=== PATIENT | female | born 1945 | race Caucasian/White ===

== ENCOUNTER 2016-08-13 03:48 | Inpatient (IN) | payer MEDICARE ==
[2016-08-13] MEDS ORDERED: predniSONE 20 MG TAB PO STA (04:23)
[2016-08-13] MEDS ORDERED: IPRATROPIUM-ALBUTEROL 3 ML NEB INHALATION STA ×2 (04:23→11:15)
--- NOTE | 2016-08-13 05:29 | XR ---
EXAMINATION TYPE: XR chest 1V portable DATE OF EXAM: 08/13/2016 4:55 AM COMPARISON: NONE HISTORY: History of COPD, patient with dyspnea TECHNIQUE: Single frontal view of the chest is obtained. Portable AP upright 08/13/2016, 4:52 AM hours FINDINGS: There is mild pulmonary vascular congestion. Chronic interstitial lung changes are suggested bilatera lly. No definite focal pneumonia is noted. There is no pneumothorax or pleural effusion. There is mild car diomegaly atherosclerotic calcification in the aortic arch and left-sided pacemaker are noted. The os seous structures are intact. IMPRESSION: 1. Mild pulmonary vascular congestion and chronic lung changes. 2. No focal pneumonia. 3. Cardiomegaly.
[2016-08-13 05:34] LABS: Basophils # (A) 0.1 k/uL (0-0.2); Basophils % (A) 0 %; CH 26.9; CHCM 30.5; Eosinophils # (A) 0.2 k/uL (0-0.7); Eosinophils % (A) 2 %; HCT 38.6 % (34.0-46.0); HDW 3.05; HGB 11.5 gm/dL (11.4-16.0); Hypochromasia Marked; Luc # (Auto) 0.11; Luc % (Auto) 1; Lymphocytes # (A) 0.5 k/uL (1.0-4.8); Lymphocytes % (A) 5 %; MCH 26.3 pg (25.0-35.0); MCHC 29.7 g/dL (31.0-37.0); MCV 88.6 fL (80.0-100.0); Mean Platelet Volume 9.2; Monocytes # (A) 0.5 k/uL (0-1.0); Monocytes % (A) 4 %; Neutrophils # (A) 9.6 k/uL (1.3-7.7); Neutrophils % (A) 88 %; RBC 4.36 m/uL (3.80-5.40); RDW 15.9 % (11.5-15.5); WBC (Perox) 11.41
[2016-08-13] MEDS ORDERED: HYDROcodone/APAP 5-325MG 1 EACH TAB PO STA (05:49)
[2016-08-13 05:52] LABS: Calcium 8.9 mg/dL (8.4-10.2); Potassium 4.9 mmol/L (3.5-5.1); Total Bilirubin 0.7 mg/dL (0.2-1.3); Total Protein 7.1 g/dL (6.3-8.2)
[2016-08-13 05:53] LABS: Creatine Kinase 86 U/L (30-135)
[2016-08-13 05:54] LABS: INR 1.1 (<1.1); Partial Thromboplastin Time 29.6 sec (22.0-30.0); Prothrombin Time 11.1 sec (9.0-12.0)
[2016-08-13 06:06] LABS: Creatine Kinase MB 1.7 ng/mL (0.0-2.4); Troponin I <0.012 ng/mL (0.000-0.034)
[2016-08-13] MEDS ORDERED: FUROSEMIDE 10 MG/ML 4 ML VIAL IV STA (06:08)
--- NOTE | 2016-08-13 06:08 | ED ---
SOB HPI - General Chief Complaint: Shortness of Breath Stated Complaint: SOB Time Seen by Provider: 08/13/16 04:02 Source: patient, family Mode of arrival: wheelchair Limitations: no limitations - History of Present Illness Initial Comments: This patient is a 8-year-old woman who presents to be evaluated for shortness of breath. The patient does have history of COPD, and states that her breathing is been getting worse for approximately a day and a half. Tonight she was not able to lie back to sleep. She does not tolerate lying flat. In addition she is now having a cough that is productive of some occasional yellow sputum. Patient denies fever or chills. She is not having chest pain. She has not noted any change in urination. She does complain that her feet seem more swollen than is usual. She has not had calf pain or swelling. Patient has not noticed a change in stool, no blood or dark tarry stool MD Complaint: shortness of breath, cough Onset/Timin -: days(s) Severity: moderate Consistency: constant Improves With: oxygen Worsens With: lying flat Known History Of: COPD Associated Symptoms: cough, sputum production - Related Data Home Medications Medication Instructions Recorded Confirmed Albuterol Nebulized [Ventolin 2.5 mg INHALATION Q6H 08/13/16 08/13/16 Nebulized] Allopurinol [Zyloprim] 300 mg PO DAILY 08/13/16 08/13/16 Apixaban [Eliquis] 2.5 mg PO BID 08/13/16 08/13/16 Aspirin 325 mg PO DAILY 08/13/16 08/13/16 Calcipotriene/Betamethasone 60 gm TP BID 08/13/16 08/13/16 [Calcipotriene-Betameth Dp Oint] Clotrimazole/Betameth Cream 1 applic TOPICAL BID 08/13/16 08/13/16 [Lotrisone] Desonide 15 gm TP DAILY 08/13/16 08/13/16 Digoxin [Lanoxin] 125 mcg PO DAILY 08/13/16 08/13/16 Furosemide [Lasix] 40 mg PO DAILY PRN 08/13/16 08/13/16 Hydrocortisone Cream 1 applic TOPICAL QID 08/13/16 08/13/16 [Hydrocortisone 1% Cream] Ipratropium Nebulized [Atrovent 0.5 mg INHALATION Q6HR 08/13/16 08/13/16 Nebulized] Ketoconazole 2% Cream [Nizoral] 1 applic TOPICAL BID 08/13/16 08/13/16 Levothyroxine Sodium [Levoxyl] 150 mcg PO DAILY 08/13/16 08/13/16 Metoprolol Succinate [Toprol XL] 50 mg PO DAILY 08/13/16 08/13/16 Nitroglycerin Sl Tabs [Nitrostat] 0.4 mg SUBLINGUAL Q5M PRN 08/13/16 08/13/16 Nystatin 1 applic TOPICAL BID 08/13/16 08/13/16 Omeprazole 40 mg PO DAILY 08/13/16 08/13/16 Triamcinolone 0.1% Cream [Kenalog] 1 applicatio TOPICAL BID 08/13/16 08/13/16 Allergies Allergy/AdvReac Type Severity Reaction Status Date / Time atorvastatin [From Lipitor] Allergy Rash/Hives Verified 08/13/16 04:01 budesonide Allergy Rash/Hives Verified 08/13/16 04:01 cheese Allergy Rash/Hives Verified 08/13/16 04:01 chocolate flavor Allergy Rash/Hives Verified 08/13/16 04:01 egg Allergy Rash/Hives Verified 08/13/16 04:01 Fish Containing Products Allergy Rash/Hives Verified 08/13/16 04:01 fluorescein Allergy Rash/Hives Verified 08/13/16 04:01 ibuprofen [From Motrin] Allergy Rash/Hives Verified 08/13/16 04:01 iodine Allergy Rash/Hives Verified 08/13/16 04:01 Milk Containing Products Allergy Rash/Hives Verified 08/13/16 04:01 peanut oil Allergy Rash/Hives Verified 08/13/16 04:01 Penicillins Allergy Rash/Hives Verified 08/13/16 04:01 wright Allergy Rash/Hives Uncoded 08/13/16 04:01 Review of Systems ROS Statement: Those systems with pertinent positive or pertinent negative responses have been documented in the HPI. ROS Other: All systems not noted in ROS Statement are negative. Constitutional: Denies: fever, chills Respiratory: Reports: cough, dyspnea. Denies: wheezes, hemoptysis Cardiovascular: Reports: orthopnea, edema. Denies: chest pain, palpitations, syncope Gastrointestinal: Denies: abdominal pain, nausea, vomiting, melena, hematochezia Genitourinary: Denies: dysuria, hematuria Musculoskeletal: Denies: back pain Skin: Denies: rash Neurological: Denies: weakness, numbness Past Medical History Past Medical History: Asthma, COPD, Hypertension, Sleep Apnea/CPAP/BIPAP, Thyroid Disorder Additional Past Medical History / Comment(s): claustrophobic History of Any Multi-Drug Resistant Organisms: None Reported Past Surgical History: Pacemaker, Tonsillectomy Additional Past Surgical History / Comment(s): thyroidectomy Past Psychological History: No Psychological Hx Reported Smoking Status: Former smoker Past Alcohol Use History: None Reported Past Drug Use History: None Reported General Exam Limitations: no limitations General appearance: alert, in distress ( in mild respiratory distress with some tachypnea.), obese Head exam: Present: atraumatic, normocephalic Eye exam: Present: normal appearance. Absent: scleral icterus, conjunctival injection Respiratory exam: Present: respiratory distress (Mild tachypnea), wheezes (Mild wheeze throughout), rales (To the bilateral lower lung seth). Absent: rhonchi , stridor, chest wall tenderness, accessory muscle use, decreased breath sounds , prolonged expiratory Cardiovascular Exam: Present: regular rate, normal rhythm, normal heart sounds. Absent: systolic murmur, diastolic murmur, rubs, gallop GI/Abdominal exam: Present: soft. Absent: distended, tenderness, guarding, rebound, mass, pulsatile mass Extremities exam: Present: normal inspection, normal capillary refill, pedal edema. Absent: calf tenderness Back exam: Present: normal inspection. Absent: CVA tenderness (R), CVA tenderness (L) Neurological exam: Present: alert Skin exam: Present: warm, dry, intact, normal color. Absent: rash Course Vital Signs 08/13/16 08/13/16 08/13/16 03:51 05:11 05:21 Temperature 97.2 F L Pulse Rate 85 88 89 Respiratory 22 Rate Blood Pressure 135/92 O2 Sat by Pulse 81 L Oximetry 08/13/16 05:27 Temperature Pulse Rate 89 Respiratory 26 H Rate Blood Pressure 177/86 O2 Sat by Pulse 95 Oximetry Medical Decision Making - Lab Data Result diagrams: 08/13/16 05:16 08/13/16 05:16 Lab Results 08/13/16 08/13/16 08/13/16 Range/Units 05:16 05:16 05:16 WBC 11.0 H (3.8-10.6) k/uL RBC 4.36 (3.80-5.40) m/uL Hgb 11.5 (11.4-16.0) gm/dL Hct 38.6 (34.0-46.0) % MCV 88.6 (80.0-100.0) fL MCH 26.3 (25.0-35.0) pg MCHC 29.7 L (31.0-37.0) g/dL RDW 15.9 H (11.5-15.5) % Plt Count 165 (150-450) k/uL Neutrophils % 88 % Lymphocytes % 5 % Monocytes % 4 % Eosinophils % 2 % Basophils % 0 % Neutrophils # 9.6 H (1.3-7.7) k/uL Lymphocytes # 0.5 L (1.0-4.8) k/uL Monocytes # 0.5 (0-1.0) k/uL Eosinophils # 0.2 (0-0.7) k/uL Basophils # 0.1 (0-0.2) k/uL Hypochromasia Marked PT (9.0-12.0) sec INR (<1.1) APTT (22.0-30.0) sec D-Dimer (<0.60) mg/L FEU Sodium 141 (137-145) mmol/L Potassium 4.9 (3.5-5.1) mmol/L Chloride 95 L (98-107) mmol/L Carbon Dioxide 36 H (22-30) mmol/L Anion Gap 10 mmol/L BUN 21 H (7-17) mg/dL Creatinine 1.10 H (0.52-1.04) mg/dL Est GFR (MDRD) Af Amer 60 (>60 ml/min/1.73 sqM) Est GFR (MDRD) Non-Af 49 (>60 ml/min/1.73 sqM) Glucose 101 H (74-99) mg/dL Calcium 8.9 (8.4-10.2) mg/dL Total Bilirubin 0.7 (0.2-1.3) mg/dL AST 26 (14-36) U/L ALT 29 (9-52) U/L Alkaline Phosphatase 89 (38-126) U/L Total Creatine Kinase 86 (30-135) U/L CK-MB (CK-2) 1.7 (0.0-2.4) ng/mL CK-MB (CK-2) Rel Index 2.0 Troponin I <0.012 (0.000-0.034) ng/mL NT-Pro-B Natriuret Pep pg/mL Total Protein 7.1 (6.3-8.2) g/dL Albumin 4.0 (3.5-5.0) g/dL 08/13/16 08/13/16 Range/Units 05:16 05:16 WBC (3.8-10.6) k/uL RBC (3.80-5.40) m/uL Hgb (11.4-16.0) gm/dL Hct (34.0-46.0) % MCV (80.0-100.0) fL MCH (25.0-35.0) pg MCHC (31.0-37.0) g/dL RDW (11.5-15.5) % Plt Count (150-450) k/uL Neutrophils % % Lymphocytes % % Monocytes % % Eosinophils % % Basophils % % Neutrophils # (1.3-7.7) k/uL Lymphocytes # (1.0-4.8) k/uL Monocytes # (0-1.0) k/uL Eosinophils # (0-0.7) k/uL Basophils # (0-0.2) k/uL Hypochromasia PT 11.1 (9.0-12.0) sec INR 1.1 (<1.1) APTT 29.6 (22.0-30.0) sec D-Dimer 0.88 H (<0.60) mg/L FEU Sodium (137-145) mmol/L Potassium (3.5-5.1) mmol/L Chloride (98-107) mmol/L Carbon Dioxide (22-30) mmol/L Anion Gap mmol/L BUN (7-17) mg/dL Creatinine (0.52-1.04) mg/dL Est GFR (MDRD) Af Amer (>60 ml/min/1.73 sqM) Est GFR (MDRD) Non-Af (>60 ml/min/1.73 sqM) Glucose (74-99) mg/dL Calcium (8.4-10.2) mg/dL Total Bilirubin (0.2-1.3) mg/dL AST (14-36) U/L ALT (9-52) U/L Alkaline Phosphatase (38-126) U/L Total Creatine Kinase (30-135) U/L CK-MB (CK-2) (0.0-2.4) ng/mL CK-MB (CK-2) Rel Index Troponin I (0.000-0.034) ng/mL NT-Pro-B Natriuret Pep 5280 pg/mL Total Protein (6.3-8.2) g/dL Albumin (3.5-5.0) g/dL - EKG Data -: EKG Interpreted by Ne EKG shows normal: axis (Normal), intervals (Normal), QRS complexes (Low voltage QRS complexes. Incomplete right bundle branch block pattern) Interpretation: other (The patient's underlying rhythm appears to be atrial fibrillation with a rate of approximately 80 bpm. inferior T inversions suggestive of possible ischemia) Disposition Clinical Impression: Congestive heart failure Disposition: ADMITTED IP TO THIS [facility] Condition: Fair Referrals: Lilia Love DO [Primary Care Provider] - 1-2 days
[2016-08-13] MEDS ORDERED: TEMAZEPAM 15 MG CAP PO PRN (16:08)
[2016-08-13] MEDS ORDERED: HYDROmorphone 1 MG/ML 1 ML SYRINGE IVP PRN (16:08)
[2016-08-13] MEDS ORDERED: NITROGLYCERIN SL TABS 0.4 MG TAB SUBLINGUAL PRN (16:12)
[2016-08-13] MEDS: HYDROCORTISONE 1% CREAM 30 GM TUBE TOPICAL SCH ×2 (18:03→20:39)
[2016-08-13] MEDS: LEVOTHYROXINE 75 MCG TAB PO SCH (18:04)
[2016-08-13] MEDS: LEVALBUTEROL NEB (CONC) 1.25 MG/0.5 ML AMP INHALATION SCH ×2 (19:24→19:48)
[2016-08-13] MEDS: IPRATROPIUM 0.5 MG/2.5 ML NEBU INHALATION SCH ×2 (19:24→19:47)
[2016-08-13] MEDS: FORMOTEROL FUMARATE 20 MCG/2 ML NEBU INHALATION SCH (19:48)
[2016-08-13] MEDS: NYSTATIN 100,000 UNIT/GM OINT 30 GM TUBE TOPICAL SCH (20:32)
--- NOTE | 2016-08-13 20:37 | HP ---
DATE OF ADMISSION: CHIEF COMPLAINT: Shortness of breath. HISTORY OF PRESENT ILLNESS: this 71-year-old woman with a past medical history of atrial fibrillation, history of asthma, COPD, GERD, hypertension. history of renal disease, history of sleep apnea, history of chronic hypoxic respiratory failure, history of pacemaker, being followed by Dr. Lilia Love in the outpatient setting, was complaining of shortness of breath over the past several days. According to the caregiver, who is the grandson, the patient has been having shortness of breath for the last several weeks. Because of increasing difficulties, the patient came to [facility] and was admitted for further evaluation and treatment. The patient also had COPD as well as psoriatic lesions. The patient also has seen the grain unloader as well as the release engineer. There is no history of any fever, rigors or chills. No history of headache, loss of consciousness, seizures. The patient is unable to lie down flat, according to the family. The patient is unable to get good sleep as well. Patient has rash under the breast. PAST MEDICAL HISTORY: 1. History of atrial fibrillation. 2. Asthma. 3. COPD. 4. GERD. 5. Hypertension. 6. History of renal disease. 7. History of respiratory disorder. 8. Sleep apnea. 9. History of pacemaker. HOME MEDICATIONS: 1. Kenalog 1 application b.i.d. 2. Omeprazole 40 mg p.o. daily. 3. Nystatin 1 application b.i.d. 4. Nitrostat 0.4 sublingually p.r.n. 5. Toprol XL 50 mg p.o. daily. 6. Levoxyl 150 mcg p.o. daily. 7. Nizoral 1 application b.i.d. 8. Atrovent 0.5 q.6. 9. Hydrocortisone 1 application q.i.d. 10. Lasix 40 mg daily p.r.n. 11. Lanoxin 125 mcg p.o. daily. 12. Desonide 15 grams daily. 13. Lotrisone 1 application b.i.d. 14. Calcipotriene 1 application b.i.d. 15. Aspirin 325 mg daily. 16. Eliquis 2.5 mg b.i.d. 17. Zyloprim 300 mg daily. 18. Ventolin 2.5 q.6. ALLERGIES: 1. ATORVASTATIN. 2. BUDESONIDE. 3. CHEESE. 4. CHOCOLATE FLAVOR. 5. EGGS. 6. FISH-CONTAINING PRODUCTS. 7. FLUORESCEIN. 8. IBUPROFEN. 9. IODINE. 10. MILK-CONTAINING PRODUCTS. 11. PEANUT OIL. 12. PENICILLIN. 13. REAGAN. FAMILY HISTORY: History of COPD in the family. SOCIAL HISTORY: Previous history of smoking. No current smoking or alcohol intake. REVIEW OF SYSTEMS: ENT: No diminished hearing. No diminished vision. CARDIOVASCULAR: No angina, palpitations. RESPIRATORY: As mentioned earlier. GI: No nausea, vomiting. : No dysuria, retention. NERVOUS SYSTEM: No numbness or weakness. ALLERGY/IMMUNOLOGY: No asthma, hayfever. MUSCULOSKELETAL: As mentioned earlier. HEMATOLOGY/ONCOLOGY: As mentioned earlier. ENDOCRINE: As mentioned earlier. CONSTITUTIONAL: As mentioned earlier. DERMATOLOGY: As mentioned earlier. RHEUMATOLOGY: Negative. PSYCHIATRY: As mentioned earlier. PHYSICAL EXAMINATION: Patient is alert and oriented x3. Pulse 84, blood pressure 156/78, respiration 18, temperature 97.8. Pulse ox 94% on 3 L. HEENT: Conjunctivae normal. Oral mucosa moist. NECK: Obese. CARDIOVASCULAR SYSTEM: S1, S2 muffled. Occasional ( ) RESPIRATORY SYSTEM: Breath sounds diminished at the bases. A few scattered rhonchi. ABDOMEN: Soft, obese, nontender. No mass palpable. LEGS: Bilateral minimal leg edema. NERVOUS SYSTEM: Higher functions as mentioned earlier. Moves all 4 limbs. No focal motor or sensory deficit. LYMPHATICS: No lymph node palpable in neck, axillae or groin. SKIN: Diffuse rash, psoriasis present. Lab investigations at this time show WBC 11, hemoglobin 11.5. PT is 11.1. INR is 1.1. D-dimer is 0.86. CO2 is 36. Glucose 101. NT-proBNP is 5280. ASSESSMENT: 1. Shortness of breath, possibly multifactorial; congestive heart failure, acute exacerbation. 2. Chronic obstructive pulmonary disease, acute exacerbation, with acute purulent tracheobronchitis. 3. Acute psoriasis. 4. Increased white count. 5. Super morbid obesity with a body mass index of 47.1. 6. Increased creatinine with possible mild acute renal failure. 7. History of atrial fibrillation. 8. History of asthma, chronic obstructive pulmonary disease. 9. History of gastroesophageal reflux disease. 10. Hypertension. 11. History of chronic kidney disease, stage III. 12. History of sleep apnea. 13. Obstructive sleep apnea. 14. History of chronic hypoxic respiratory failure, on home oxygen 2 liters. 15. Chronic bilateral leg edema. 16. Pacemaker. 17. Remote history of nicotine dependence. 18. FULL CODE. RECOMMENDATIONS AND DISCUSSION: In this 71-year-old woman who presented with multiple complex medical issues, we will monitor the patient closely, continue the current medications, continue symptomatic treatment. Will optimize the bronchodilator treatment, Lasix. Otherwise, IV steroids. See orders for further details. Guarded prognosis because of multiple complex medical issues. Further recommendations to follow. A copy of this dictation is being forwarded to Dr. Lilia Love. Discussed with the family. Home medications will be continued.
[2016-08-13] MEDS: APIXABAN 2.5 MG TABLET PO SCH (20:38)
[2016-08-13] MEDS: CLOTRIMAZOLE/BETAMETH 1-0.05% CREAM 45 GM TUBE TOPICAL SCH (20:38)
[2016-08-13] MEDS: TRIAMCINOLONE 0.1% CREAM 80 GM TUBE TOPICAL SCH (20:38)
[2016-08-13] MEDS ORDERED: [UNRECOGNIZED DRUG - OTHER] TOPICAL SCH (21:00)
[2016-08-13] MEDS ORDERED: CLOTRIMAZOLE/BETAMETH 1-0.05% CREAM 45 GM TUBE TOPICAL SCH (21:00)
[2016-08-13] MEDS ORDERED: CALCIPOTRIENE TOPICAL SCH (21:00)
[2016-08-13] MEDS ORDERED: BETAMETHASONE TOPICAL SCH (21:00)
[2016-08-13] MEDS ORDERED: NON-FORMULARY DRUG (Ketoconazole 2% Cream 1 APPLIC) TOPICAL SCH (21:00)
[2016-08-14] MEDS: LEVOTHYROXINE 75 MCG TAB PO SCH (06:00)
[2016-08-14] MEDS: HYDROcodone/APAP 5-325MG 1 EACH TAB PO PRN (06:01)
[2016-08-14] MEDS: PANTOPRAZOLE 40 MG TABLET PO SCH (06:01)
[2016-08-14 06:05] LABS: Basophils % (A) 0 %; CH 26.3; Eosinophils # (A) 0.1 k/uL (0-0.7); Eosinophils % (A) 1 %; HCT 39.4 % (34.0-46.0); HDW 2.99; HGB 11.7 gm/dL (11.4-16.0); Hypochromasia Marked; Luc # (Auto) 0.15; Luc % (Auto) 2; Lymphocytes # (A) 0.8 k/uL (1.0-4.8); Lymphocytes % (A) 8 %; MCH 26.9 pg (25.0-35.0); MCHC 29.6 g/dL (31.0-37.0); MCV 90.9 fL (80.0-100.0); Mean Platelet Volume 8.8; Monocytes # (A) 0.4 k/uL (0-1.0); Monocytes % (A) 4 %; Neutrophils # (A) 8.8 k/uL (1.3-7.7); Neutrophils % (A) 85 %; RBC 4.33 m/uL (3.80-5.40); RDW 15.4 % (11.5-15.5); WBC 10.3 k/uL (3.8-10.6); WBC (Perox) 10.89
[2016-08-14 06:18] LABS: Calcium 9.1 mg/dL (8.4-10.2)
[2016-08-14 06:19] LABS: Potassium 5.5 mmol/L (3.5-5.1)
[2016-08-14] MEDS: FORMOTEROL FUMARATE 20 MCG/2 ML NEBU INHALATION SCH ×2 (06:25→20:39)
[2016-08-14] MEDS: LEVALBUTEROL NEB (CONC) 1.25 MG/0.5 ML AMP INHALATION SCH ×3 (06:25→16:23)
[2016-08-14] MEDS: IPRATROPIUM 0.5 MG/2.5 ML NEBU INHALATION SCH ×3 (06:25→16:23)
[2016-08-14] MEDS ORDERED: LEVOTHYROXINE 75 MCG TAB PO SCH (06:30)
[2016-08-14] MEDS: DIGOXIN 125 MCG TAB PO SCH (08:09)
[2016-08-14] MEDS: ALLOPURINOL 300 MG TAB PO SCH (08:09)
[2016-08-14] MEDS: APIXABAN 2.5 MG TABLET PO SCH ×2 (08:09→21:24)
[2016-08-14] MEDS: METOPROLOL SUCCINATE (ER) 50 MG TAB.ER.24H PO SCH (08:09)
[2016-08-14] MEDS: NYSTATIN 100,000 UNIT/GM OINT 30 GM TUBE TOPICAL SCH ×2 (08:10→22:53)
[2016-08-14] MEDS: CLOTRIMAZOLE/BETAMETH 1-0.05% CREAM 45 GM TUBE TOPICAL SCH ×2 (08:10→22:53)
[2016-08-14] MEDS: TRIAMCINOLONE 0.1% CREAM 80 GM TUBE TOPICAL SCH ×2 (08:10→22:53)
[2016-08-14] MEDS: HYDROCORTISONE 1% CREAM 30 GM TUBE TOPICAL SCH ×4 (08:10→22:54)
[2016-08-14 08:24] LABS: Appearance,Urine Cloudy (Clear); Bacteria,Urine Rare /hpf; Bilirubin,Urine Negative (Negative); Glucose,Urine (UA) Negative (Negative); Ketones,Urine Negative (Negative); Leukocyte Esterase,Urine Negative (Negative); Mucus,Urine Rare /hpf; Nitrite,Urine Negative (Negative); PH, Urine 5.5 (5.0-8.0); Particle Count 5015; Protein,Urine Trace (Negative); Specific Gravity,Urine 1.015 (1.001-1.035); Squamous Epithelial Cell,Urine 2 /hpf (0-4); UA Billing (MACRO vs. MICRO) MICRO; Urobilinogen,Urine <2.0 mg/dL (<2.0); WBC,Urine 2 /hpf (0-5)
[2016-08-14] MEDS ORDERED: NON-FORMULARY DRUG (Omeprazole [Omeprazole] 40 MG) PO SCH (09:00)
[2016-08-14] MEDS ORDERED: ASPIRIN 325 MG TAB PO SCH (09:00)
[2016-08-14] MEDS ORDERED: DESONIDE 15 GM TOPICAL SCH (09:00)
--- NOTE | 2016-08-14 09:20 | P.CRDCN ---
History of Present Illness Consult date: 08/14/16 Requesting physician: Bradley Cardenas Consult reason: congestive heart failure Chief complaint: Shortness of breath History of present illness: This is a 71-year-old female with known history of chronic persistent atrial fibrillation, COPD, asthma, GERD, hypertension, renal disease, sleep apnea, prior pacemaker implantation, psoriasis, who is from the [place] area, has lived in [place] for several years and recently moved back to this area. She states that she has seen a transition mgr rn locally, however there is no records for her in the office. Patient was admitted to the hospital with symptoms of 3-4 day duration of progressively worsening shortness of breath. Patient also states she's been coughing a significant amount, clear to yellow sputum. Denies fever or chills. She does have evidence of bilateral peripheral edema, greater in the left lower extremity, she states that this is normal for her, maybe a little bit more than usual. She has significant amount of psoriasis lesions on her entire body. Chest x-ray on admission reveals mild pulmonary vascular congestion and chronic lung changes with no evidence. EKG on arrival here showed atrial fibrillation with a controlled ventricular response, inferior ST-T wave changes. Laboratory data reviewed, WBC 11.0, hemoglobin 11.5, d-dimer 0.8, potassium 5.5 this morning, BUN 29, creatinine 1.2. Troponin 0.012. BNP level 5280. Patient was given a one-time dose of IV Lasix in the emergency room. She is on Eliquis for anticoagulation, was initiated on a full aspirin here as well. At the time of my examination this morning, patient continues to have a productive cough, states her breathing is mildly improved. Past Medical History Past Medical History: Atrial Fibrillation, Asthma, COPD, GERD/Reflux, Hypertension, Renal Disease, Respiratory Disorder, Skin Disorder, Sleep Apnea/ CPAP/BIPAP, Thyroid Disorder Additional Past Medical History / Comment(s): BRANDEN with CPAP, home O2 at 2L/NC, CKD stage III, chronic lower leg edema bilatrally with L leg worse, gout bilateral feet, thyroidectomy due to benign nodules, psoriasis, claustrophobic History of Any Multi-Drug Resistant Organisms: None Reported Past Surgical History: Pacemaker, Tonsillectomy Additional Past Surgical History / Comment(s): 08/2014 Pacemaker in [place] (pt cannot recall name of facility), thyroidectomy, colonoscopy Past Anesthesia/Blood Transfusion Reactions: No Reported Reaction Additional Past Anesthesia/Blood Transfusion Reaction / Comment(s): Pt has clausterphobia. Type of Cardiac Device: Permanent Pacemaker Device Placement Date:: 09/3014 Past Psychological History: No Psychological Hx Reported Additional Psychological History / Comment(s): Pt resides with her nephew and his spouse. Her nephew, Kashif is her accountant certified public. She ambulates with a walker. She has a CPAP, home O2 and a nebulizer. She does not drive, her nephew takes her to appointments. She has clausterphobia. Smoking Status: Former smoker Past Alcohol Use History: None Reported Additional Past Alcohol Use History / Comment(s): Pt states she started smoking in 1961 and quit about 1996. Past Drug Use History: None Reported - Past Family History Mother Family Medical History: COPD Additional Family Medical History / Comment(s): Mother was a smoker. She at the age of 82 yrs. Father Family Medical History: CVA/TIA Additional Family Medical History / Comment(s): Father lived to be 80 yrs. old. Medications and Allergies Home Medications Medication Instructions Recorded Confirmed Type Albuterol Nebulized [Ventolin 2.5 mg INHALATION RT-Q6H 08/13/16 08/13/16 History Nebulized] Allopurinol [Zyloprim] 300 mg PO DAILY 08/13/16 08/13/16 History Apixaban [Eliquis] 2.5 mg PO BID 08/13/16 08/13/16 History Aspirin 325 mg PO DAILY 08/13/16 08/13/16 History Calcipotriene/Betamethasone 1 applic TOPICAL BID 08/13/16 08/13/16 History [Calcipotriene-Betameth Dp Oint] Clotrimazole/Betameth Cream 1 applic TOPICAL BID 08/13/16 08/13/16 History [Lotrisone] Desonide 15 gm TOPICAL DAILY 08/13/16 08/13/16 History Digoxin [Lanoxin] 125 mcg PO DAILY 08/13/16 08/13/16 History Furosemide [Lasix] 40 mg PO DAILY PRN 08/13/16 08/13/16 History Hydrocortisone Cream 1 applic TOPICAL QID 08/13/16 08/13/16 History [Hydrocortisone 1% Cream] Ipratropium Nebulized [Atrovent 0.5 mg INHALATION RT-Q6H 08/13/16 08/13/16 History Nebulized] Ketoconazole 2% Cream [Nizoral] 1 applic TOPICAL BID 08/13/16 08/13/16 History Levothyroxine Sodium [Levoxyl] 150 mcg PO DAILY 08/13/16 08/13/16 History Metoprolol Succinate [Toprol XL] 50 mg PO DAILY 08/13/16 08/13/16 History Nitroglycerin Sl Tabs [Nitrostat] 0.4 mg SUBLINGUAL Q5M PRN 08/13/16 08/13/16 History Nystatin 1 applic TOPICAL BID 08/13/16 08/13/16 History Omeprazole 40 mg PO DAILY 08/13/16 08/13/16 History Triamcinolone 0.1% Cream [Kenalog] 1 applic TOPICAL BID 08/13/16 08/13/16 History Allergies Allergy/AdvReac Type Severity Reaction Status Date / Time atorvastatin [From Lipitor] Allergy Rash/Hives Verified 08/13/16 08:05 budesonide Allergy Rash/Hives Verified 08/13/16 08:05 cheese Allergy Rash/Hives Verified 08/13/16 08:05 chocolate flavor Allergy Rash/Hives Verified 08/13/16 08:05 egg Allergy Rash/Hives Verified 08/13/16 08:05 Fish Containing Products Allergy Rash/Hives Verified 08/13/16 08:05 fluorescein Allergy Rash/Hives Verified 08/13/16 08:05 ibuprofen [From Motrin] Allergy Rash/Hives Verified 08/13/16 08:05 iodine Allergy Rash/Hives Verified 08/13/16 08:05 Milk Containing Products Allergy Rash/Hives Verified 08/13/16 08:05 peanut oil Allergy Rash/Hives Verified 08/13/16 08:05 Penicillins Allergy Rash/Hives Verified 08/13/16 08:05 wright Allergy Rash/Hives Uncoded 08/13/16 04:01 Physical Exam Vitals: Vital Signs Temp Pulse Pulse Resp BP BP Pulse Ox 08/14/16 08:00 96.8 F L 90 18 145/67 97 08/14/16 06:41 76 08/14/16 06:25 90 08/14/16 04:00 97.2 F L 73 20 148/71 96 08/14/16 00:00 92 20 143/87 93 L 01/19/17 20:07 78 08/13/16 20:00 97.0 F L 86 20 168/96 93 L 08/13/16 19:50 78 08/13/16 15:46 97.8 F 84 18 156/78 95 08/13/16 15:41 80 18 08/13/16 13:07 80 18 08/13/16 12:46 80 18 144/90 92 L 08/13/16 12:07 97.5 F L 89 18 161/92 95 08/13/16 11:34 78 08/13/16 11:26 73 08/13/16 11:15 81 18 96 08/13/16 09:16 83 17 159/63 96 Intake and Output 08/13/16 08/14/16 08/14/16 22:59 06:59 14:59 Intake Total 490 Output Total 300 Balance 490 -300 Intake: Oral 490 Output: Urine 300 Other: # Voids 1 # Bowel Movements 0 Weight 118.8 kg PHYSICAL EXAMINATION: HEENT: Head is atraumatic, normocephalic. Pupils equal, round. Neck is supple. There is no elevated jugular venous pressure. HEART EXAMINATION: Heart S1 and S2 irregular irregular systolic murmur is heard. CHEST EXAMINATION: His reveal coarse wheezing with diminished air entry bilateral bases. ABDOMEN: Soft, obese, nontender. Bowel sounds are heard. No organomegaly noted. EXTREMITIES:[ 1+ peripheral pulses with 1+ peripheral edema to the right lower extremity, 2+ edema to the left lower extremity. SKIN: Evidence of psoriasis lesions on the entire body. NEUROLOGIC patient is awake, alert and oriented -3. . Results 08/14/16 05:40 08/14/16 05:40 CBC 08/14/16 Range/Units 05:40 WBC 10.3 (3.8-10.6) k/uL RBC 4.33 (3.80-5.40) m/uL Hgb 11.7 (11.4-16.0) gm/dL Hct 39.4 (34.0-46.0) % Plt Count 164 (150-450) k/uL Comprehensive Metabolic Panel 08/14/16 Range/Units 05:40 Sodium 138 (137-145) mmol/L Potassium 5.5 H (3.5-5.1) mmol/L Chloride 94 L (98-107) mmol/L Carbon Dioxide 34 H (22-30) mmol/L BUN 29 H (7-17) mg/dL Creatinine 1.20 H (0.52-1.04) mg/dL Glucose 102 H (74-99) mg/dL Calcium 9.1 (8.4-10.2) mg/dL Current Medications Generic Name Dose Route Start Last Admin Trade Name Freq PRN Reason Stop Dose Admin Acetaminophen/Hydrocodone Bitart 1 each 08/13/16 16:08 08/14/16 06:01 [place] 5-325 PO 1 each Q6HR PRN Administration Pain Allopurinol 300 mg 08/14/16 09:00 08/14/16 08:09 Zyloprim PO 300 mg DAILY JESSICA Administration Apixaban 2.5 mg 08/13/16 21:00 08/14/16 08:09 Eliquis PO 2.5 mg BID JESSICA Administration Aspirin 325 mg 08/14/16 09:00 08/14/16 08:09 Aspirin PO 325 mg DAILY JESSICA Administration Betamethasone/Clotrimazole 1 applic 08/13/16 21:00 08/14/16 08:10 Lotrisone TOPICAL 1 applic BID JESSICA Administration Digoxin 125 mcg 08/14/16 09:00 08/14/16 08:09 Lanoxin PO 125 mcg DAILY JESSICA Administration Formoterol Fumarate 20 mcg 08/13/16 20:00 08/14/16 06:25 Perforomist INHALATION 20 mcg RT-BID JESSICA Administration Hydrocortisone 1 applic 08/13/16 18:00 08/14/16 08:10 Hydrocortisone 1% Cream TOPICAL 1 applic QID JESSICA Administration Hydromorphone HCl 0.5 mg 08/13/16 16:08 Dilaudid IVP Q6HR PRN Severe Pain Ipratropium [place] 0.5 mg 08/13/16 16:00 08/14/16 06:25 Atrovent Nebulized INHALATION 0.5 mg RT-QID JESSICA Administration Levalbuterol HCl 1.25 mg 08/13/16 16:00 08/14/16 06:25 Xopenex Nebulized (Conc) INHALATION 1.25 mg RT-QID JESSICA Administration Levothyroxine Sodium 150 mcg 08/13/16 18:00 08/14/16 06:00 Synthroid PO 150 mcg DAILY@0630 JESSICA Administration Metoprolol Succinate 50 mg 08/14/16 09:00 08/14/16 08:09 Toprol Xl PO 50 mg DAILY JESSICA Administration Nitroglycerin 0.4 mg 08/13/16 16:12 Nitrostat SUBLINGUAL Q5M PRN Pain Nystatin 1 applic 08/13/16 21:00 08/14/16 08:10 Mycostatin Oint TOPICAL 1 applic BID JESSICA Administration Pantoprazole Sodium 40 mg 08/14/16 07:30 08/14/16 06:01 Protonix PO 40 mg AC-BRKFST JESSICA Administration Temazepam 15 mg 08/13/16 16:08 Restoril PO HS PRN Insomnia Triamcinolone Acetonide 1 applic 08/13/16 21:00 08/14/16 08:10 Kenalog TOPICAL 1 applic BID JESSICA Administration Intake and Output 08/13/16 08/14/16 08/14/16 22:59 06:59 14:59 Intake Total 490 Output Total 300 Balance 490 -300 Intake: Oral 490 Output: Urine 300 Other: # Voids 1 # Bowel Movements 0 Weight 118.8 kg 08/14/16 05:40 08/14/16 05:40 EKG Interpretations (text) EKG shows atrial fibrillation with inferior ST-T wave changes, controlled ventricular response. Assessment and Plan Plan: Assessment and plan #1 congestive cardiac failure, ejection fraction unknown. #2 possible tracheobronchitis #3 chronic persistent atrial fibrillation, on Eliquis #4 asthma and COPD #5 history of sleep apnea #6 history of prior pacemaker implantation #7 psoriasis #8 hypertension #9 mild dementia Plan We'll start the patient on IV Lasix. Discontinue aspirin. Continue Eliquis. Continue beta kameron. Obtain echocardiogram with Doppler study. Monitor intake and output along with daily weights and daily lytes BUN and creatinine. Further recommendations to follow. DNP note has been reviewed, I agree with a documented findings and plan of care. Patient was seen and examined.
--- NOTE | 2016-08-14 12:00 | ECHOF ---
Referral Reason:sob MEASUREMENTS -------- HEIGHT: 160.0 cm WEIGHT: 118.4 kg BP: 145/67 IVSd: 1.2 cm (0.6 - 1.1) LVIDd: 5.2 cm (3.9 - 5.3) LVPWd: 1.5 cm (0.6 - 1.1) IVSs: 1.4 cm LVIDs: 3.9 cm LVPWs: 1.4 cm Ao Diam: 3.2 cm (2.0 - 3.7) AV Cusp: 1.9 cm (1.5 - 2.6) LA Diam: 4.0 cm (2.7 - 3.8) MV EXCURSION: 21.518 mm (> 18.000) MV EF SLOPE: 90 mm/s (70 - 150) EPSS: 1.3 cm MV E Nicolas: 0.91 m/s MV DecT: 285 ms MV A Nicolas: 0.41 m/s MV E/A Ratio: 2.25 RAP: 5.00 mmHg RVSP: 36.20 mmHg FINDINGS -------- Paced rhythm. This was a technically difficult study with suboptimal views. There is mild concentric left ventricular hypertrophy. Overall left ventricular systolic function is mild-moderately impaired with, an EF between 40 - 45 %. The right ventricle is normal in size and function. The left atrium is mildly dilated. The right atrium is normal in size. Aortic valve is trileaflet and is mildly thickened. The mitral valve leaflets are mildly thickened. Mild mitral regurgitation is present. Mild tricuspid regurgitation present. The right ventricular systolic pressure, as measured by Doppler, is 36.20mmHg. Pulmonic valve appears structurally normal. The pericardium is normal. CONCLUSIONS -------- 1. Paced rhythm. 2. Mild mitral regurgitation is present. 3. Mild tricuspid regurgitation present. 4. The right ventricular systolic pressure, as measured by Doppler, is 36.20mmHg. 5. Pulmonic valve appears structurally normal. 6. The pericardium is normal. 7. This was a technically difficult study with suboptimal views. 8. There is mild concentric left ventricular hypertrophy. 9. Overall left ventricular systolic function is mild-moderately impaired with, an EF between 40 - 45 %. 10. The right ventricle is normal in size and function. 11. The left atrium is mildly dilated. 12. The right atrium is normal in size. 13. Aortic valve is trileaflet and is mildly thickened. 14. The mitral valve leaflets are mildly thickened. PLUSH WEAVER: Yazmin Mason RDCS
[2016-08-14] MEDS: FUROSEMIDE 10 MG/ML 4 ML VIAL IV SCH ×2 (12:36→21:25)
[2016-08-14 13:27] VITALS: BMI 46.3
--- NOTE | 2016-08-14 18:30 | PN ---
DATE OF SERVICE: 08/13/2016 This 71-year-old woman was admitted with CHF acute exacerbation also possible COPD also with combined treatment. Patient feeling much better. Cardiology is following the patient closely. A 2-D echo with Doppler was done, which showed ejection fraction of 40 to 45%. PAST MEDICAL HISTORY: Reviewed. REVIEW OF SYSTEMS: CARDIOVASCULAR: As mentioned earlier. Respiratory : As mentioned earlier. GI: No nausea or vomiting. GENITOURINARY: No dysuria. Central nervous system: No numbness or weakness. Current medications are reviewed and include: 1. [place] 5 mg q.6 p.r.n. 2. Zyloprim 300 mg p.o. daily. 3. Eliquis 2.5 mg b.i.d. 4. Lotrisone cream. 5. Lanoxin 125 mcg. 6. Perforomist. 7. Lasix 40 mg daily. 8. Hydrocortisone cream. 9. Dilaudid p.r.n. 10. Xopenex. 11. Synthroid. 12. Toprol-XL. 13. Nitrostat. 14. Protonix. 15. Restoril. PHYSICAL EXAMINATION: The patient is alert and oriented x3, pulse 75, blood pressure 140/77, respiratory rate 17, temperature 97.7, pulse ox 94% on 3 L. HEENT: Conjunctivae normal. NECK: No jugular venous distention. CARDIOVASCULAR: S1, S2 muffled. RESPIRATORY: Breath sounds diminished at the bases. A few scattered rhonchi and crackles. ABDOMEN: Soft, obese, nontender. LEGS: Bilateral leg edema. Nervous system: Diffusely weak. LABS: WBC 10.3, sodium 130, potassium 5.4. Creatinine is 1.20. BUN is 29. UA noted. ASSESSMENT: 1. Shortness of breath possible multifactorial with congestive heart failure acute exacerbation, with acute on chronic systolic dysfunction, ejection fraction 40% to 45%. 2. Chronic obstructive pulmonary disease acute exacerbation, with acute purulent tracheobronchitis. 3. Acute psoriasis. 4. Increased WBC. 5. Super morbid obesity with a body mass index of 47.1. 6. Increased creatinine with possible mild acute renal failure, possible prerenal with acute tubular necrosis. 7. History of atrial fibrillation. 8. History of asthma, chronic obstructive pulmonary disease. 9. History of gastroesophageal reflux disease. 10. Hypertension. 11. History of chronic kidney disease Stage III. 12. Sleep apnea. 13. Obstructive sleep apnea. 14. History of chronic hypoxic respiratory failure, on home oxygen 2 liters. 15. Chronic bilateral leg edema. 16. Pacemaker. 17. Remote history of nicotine dependence. 18. FULL CODE. RECOMMENDATIONS AND DISCUSSION: Recommend to continue with the monitoring, continue with monitoring, symptomatic treatment. Continue bronchodilators. Otherwise, I would recommend short course of steroids, continue with bronchodilators and continue with diuresis. Guarded prognosis because of multiple complex medical issues. Further recommendations to follow.
[2016-08-14] MEDS: IPRATROPIUM-ALBUTEROL 3 ML NEB INHALATION SCH (20:39)
[2016-08-14] MEDS ORDERED: FUROSEMIDE 10 MG/ML 4 ML VIAL IV SCH (21:00)
[2016-08-14] MEDS: MENTHOL (NICE) LOZENGE MUCOUS MEM PRN (21:24)
[2016-08-15 06:37] LABS: Basophils % (A) 1 %; CH 26.8; CHCM 30.4; Eosinophils # (A) 0.1 k/uL (0-0.7); Eosinophils % (A) 1 %; HCT 34.5 % (34.0-46.0); HDW 3.02; HGB 10.4 gm/dL (11.4-16.0); Hypochromasia Marked; Luc # (Auto) 0.11; Luc % (Auto) 1; Lymphocytes % (A) 12 %; MCH 26.7 pg (25.0-35.0); MCHC 30.1 g/dL (31.0-37.0); MCV 88.5 fL (80.0-100.0); Mean Platelet Volume 9.2; Monocytes # (A) 0.4 k/uL (0-1.0); Monocytes % (A) 5 %; Neutrophils # (A) 6.2 k/uL (1.3-7.7); Neutrophils % (A) 79 %; RBC 3.89 m/uL (3.80-5.40); RDW 15.7 % (11.5-15.5); WBC 7.8 k/uL (3.8-10.6); WBC (Perox) 8.25
[2016-08-15 06:46] LABS: Calcium 8.4 mg/dL (8.4-10.2); Potassium 4.6 mmol/L (3.5-5.1)
[2016-08-15] MEDS: HYDROcodone/APAP 5-325MG 1 EACH TAB PO PRN (06:52)
[2016-08-15] MEDS: LEVOTHYROXINE 75 MCG TAB PO SCH (06:53)
[2016-08-15] MEDS: PANTOPRAZOLE 40 MG TABLET PO SCH (06:53)
[2016-08-15] MEDS: FUROSEMIDE 10 MG/ML 4 ML VIAL IV SCH ×2 (08:18→18:10)
[2016-08-15] MEDS: APIXABAN 2.5 MG TABLET PO SCH ×2 (08:18→20:15)
[2016-08-15] MEDS: METOPROLOL SUCCINATE (ER) 50 MG TAB.ER.24H PO SCH (08:19)
[2016-08-15] MEDS: DIGOXIN 125 MCG TAB PO SCH (08:19)
[2016-08-15] MEDS: CLOTRIMAZOLE/BETAMETH 1-0.05% CREAM 45 GM TUBE TOPICAL SCH ×2 (08:19→22:30)
[2016-08-15] MEDS: ALLOPURINOL 300 MG TAB PO SCH (08:19)
[2016-08-15] MEDS: NYSTATIN 100,000 UNIT/GM OINT 30 GM TUBE TOPICAL SCH ×2 (08:19→22:31)
[2016-08-15] MEDS: HYDROCORTISONE 1% CREAM 30 GM TUBE TOPICAL SCH ×4 (08:19→22:30)
[2016-08-15] MEDS: FORMOTEROL FUMARATE 20 MCG/2 ML NEBU INHALATION SCH ×2 (09:02→20:40)
[2016-08-15] MEDS: IPRATROPIUM-ALBUTEROL 3 ML NEB INHALATION SCH ×4 (09:02→20:40)
[2016-08-15] MEDS: TRIAMCINOLONE 0.1% CREAM 80 GM TUBE TOPICAL SCH ×2 (10:49→22:30)
--- NOTE | 2016-08-15 12:04 | P.PN ---
Subjective Principal diagnosis: Bronchitis/CHF This is a 71-year-old female with known history of chronic persistent atrial fibrillation, COPD, asthma, GERD, hypertension, renal disease, sleep apnea, prior pacemaker implantation, psoriasis, who is from the [place] area, has lived in [place] for several years and recently moved back to this area. She states that she has seen a document coordinator locally, however there is no records for her in the office. Patient was admitted to the hospital with symptoms of 3-4 day duration of progressively worsening shortness of breath. Patient also states she's been coughing a significant amount, clear to yellow sputum. Denies fever or chills. She does have evidence of bilateral peripheral edema, greater in the left lower extremity, she states that this is normal for her, maybe a little bit more than usual. She has significant amount of psoriasis lesions on her entire body. Chest x-ray on admission reveals mild pulmonary vascular congestion and chronic lung changes with no evidence. EKG on arrival here showed atrial fibrillation with a controlled ventricular response, inferior ST-T wave changes.She is on Eliquis for anticoagulation, on IV Lasix, weight down 1 kg today. Objective - Vital Signs Vital signs: Vital Signs Temp 97.0 F L 08/15/16 04:00 Pulse 82 08/15/16 11:47 Resp 20 08/15/16 04:00 BP 133/72 08/15/16 04:00 Pulse Ox 97 08/15/16 04:00 Intake & Output 08/14/16 08/15/16 08/15/16 18:59 06:59 18:59 Intake Total 840 Output Total 500 1600 Balance 340 -1600 Weight 118.8 kg 117.6 kg Intake: Oral 840 Output: Urine 500 1600 Stool 0 Other: # Voids 1 1 # Bowel Movements 0 - Exam PHYSICAL EXAMINATION: HEENT: Head is atraumatic, normocephalic. Pupils equal, round. Neck is supple. There is no elevated jugular venous pressure. HEART EXAMINATION: Heart S1 and S2 irregular irregular systolic murmur is heard. CHEST EXAMINATION: His reveal coarse wheezing with diminished air entry bilateral bases. ABDOMEN: Soft, obese, nontender. Bowel sounds are heard. No organomegaly noted. EXTREMITIES:[ 1+ peripheral pulses with 1+ peripheral edema to the right lower extremity, 2+ edema to the left lower extremity. SKIN: Evidence of psoriasis lesions on the entire body. NEUROLOGIC patient is awake, alert and oriented -3. . - Labs CBC & Chem 7: 08/15/16 05:51 08/15/16 05:51 Labs: Abnormal Lab Results - Last 24 Hours (Table) 08/15/16 08/15/16 Range/Units 05:51 05:51 Hgb 10.4 L (11.4-16.0) gm/dL MCHC 30.1 L (31.0-37.0) g/dL RDW 15.7 H (11.5-15.5) % Plt Count 147 L (150-450) k/uL Chloride 91 L (98-107) mmol/L Carbon Dioxide 39 H (22-30) mmol/L BUN 44 H (7-17) mg/dL Creatinine 1.38 H (0.52-1.04) mg/dL Assessment and Plan Plan: Assessment and plan #1 congestive cardiac failure, systolic acute on chronic. #2 tracheobronchitis #3 chronic persistent atrial fibrillation, on Eliquis #4 asthma and COPD #5 history of sleep apnea #6 history of prior pacemaker implantation #7 psoriasis #8 hypertension #9 mild dementia Plan From cardiology's perspective, we'll keep the patient on current dose of IV Lasix. Check daily lytes BUN and creatinine and daily weights. Consider JANE inhibitor once creatinine normalizes. DNP note has been reviewed, I agree with a documented findings and plan of care. Patient was seen and examined.
[2016-08-15] MEDS: MENTHOL (NICE) LOZENGE MUCOUS MEM PRN ×2 (14:15→20:16)
[2016-08-15] MEDS: methylPREDNISolone SOD SUCCI 40 MG/ML 1 ML VIAL IV SCH ×2 (18:10→22:55)
[2016-08-15 21:00] LABS: Glucose,Whole Blood 127 mg/dL (75-99)
[2016-08-15] MEDS: INSULIN LISPRO (humaLOG) 300 UNIT/3 ML VIAL SQ SCH (21:18)
[2016-08-16 05:59] LABS: Glucose,Whole Blood 158 mg/dL (75-99)
[2016-08-16 06:24] LABS: Basophils % (A) 0 %; CH 26.7; CHCM 30.6; Eosinophils # (A) 0.1 k/uL (0-0.7); Eosinophils % (A) 1 %; HCT 35.5 % (34.0-46.0); HDW 3.06; HGB 10.7 gm/dL (11.4-16.0); Hypochromasia Moderate; Luc % (Auto) 1; Lymphocytes # (A) 0.5 k/uL (1.0-4.8); Lymphocytes % (A) 5 %; MCH 26.4 pg (25.0-35.0); MCHC 30.2 g/dL (31.0-37.0); MCV 87.5 fL (80.0-100.0); Mean Platelet Volume 9.2; Monocytes # (A) 0.1 k/uL (0-1.0); Monocytes % (A) 1 %; Neutrophils # (A) 9.1 k/uL (1.3-7.7); Neutrophils % (A) 92 %; RBC 4.06 m/uL (3.80-5.40); RDW 15.4 % (11.5-15.5); WBC 9.9 k/uL (3.8-10.6); WBC (Perox) 9.98
[2016-08-16] MEDS: methylPREDNISolone SOD SUCCI 40 MG/ML 1 ML VIAL IV SCH ×4 (06:31→23:43)
[2016-08-16] MEDS: PANTOPRAZOLE 40 MG TABLET PO SCH (06:32)
[2016-08-16] MEDS: FUROSEMIDE 10 MG/ML 4 ML VIAL IV SCH ×2 (06:32→17:22)
[2016-08-16] MEDS: INSULIN LISPRO (humaLOG) 300 UNIT/3 ML VIAL SQ SCH ×4 (06:32→21:27)
[2016-08-16] MEDS: LEVOTHYROXINE 75 MCG TAB PO SCH (06:32)
[2016-08-16 06:39] LABS: Calcium 8.4 mg/dL (8.4-10.2)
[2016-08-16] MEDS: METOPROLOL SUCCINATE (ER) 50 MG TAB.ER.24H PO SCH (08:15)
[2016-08-16] MEDS: ALLOPURINOL 300 MG TAB PO SCH (08:15)
[2016-08-16] MEDS: DIGOXIN 125 MCG TAB PO SCH (08:15)
[2016-08-16] MEDS: APIXABAN 2.5 MG TABLET PO SCH ×2 (08:15→21:27)
[2016-08-16] MEDS: NYSTATIN 100,000 UNIT/GM OINT 30 GM TUBE TOPICAL SCH ×2 (08:16→21:32)
[2016-08-16] MEDS: HYDROCORTISONE 1% CREAM 30 GM TUBE TOPICAL SCH ×4 (08:16→21:32)
[2016-08-16] MEDS: TRIAMCINOLONE 0.1% CREAM 80 GM TUBE TOPICAL SCH ×2 (08:16→21:32)
[2016-08-16] MEDS: CLOTRIMAZOLE/BETAMETH 1-0.05% CREAM 45 GM TUBE TOPICAL SCH ×2 (08:16→21:32)
--- NOTE | 2016-08-16 08:57 | PN ---
DATE OF SERVICE: 08/15/2016 This 71-year-old woman who was admitted with shortness of breath, possible multifactorial, congestive heart failure acute exacerbation. The patient is improving significantly. No chest pain, no palpitations, no fever. On exam, alert and oriented 3. Pulse 78, blood pressure 126/52, respirations 16, temperature 96.8, pulse ox 94% on 3-L. HEENT: Conjunctivae normal. NECK: No jugular venous distention. CARDIOVASCULAR: S1 and S2. RESPIRATORY: Breath sounds diminished at the bases. A few scattered rhonchi. ABDOMEN: Soft, nontender. LEGS: Bilateral leg edema. NERVOUS SYSTEM: No focal deficits. SKIN: Multiple skin lesions. LABS: Creatinine 1.38, BUN is 44. ASSESSMENT: 1. Shortness of breath, possibly multifactorial, congestive heart failure acute exacerbation with acute on chronic systolic dysfunction, ejection fraction 40% to 45% and chronic obstructive pulmonary disease acute exacerbation with acute purulent tracheobronchitis. 2. Acute psoriasis. 3. Increased WBC. 4. Super morbid obesity with body mass index of 47.1. 5. Increased creatinine with possible mild acute renal failure, possible prerenal with acute tubular necrosis. 6. Atrial fibrillation. 7. History of asthma, chronic obstructive pulmonary disease. 8. History of gastroesophageal reflux disease. 9. Hypertension. 10. History of chronic kidney disease, stage III. 11. Obstructive sleep apnea. 12. History of chronic hypoxic respiratory failure on home oxygen 2 liters. 13. Chronic bilateral leg edema. 14. Pacemaker. 15. Remote history of nicotine dependence. 16. FULL CODE. RECOMMENDATIONS AND DISCUSSION: I recommend to continue the current medications, continue monitoring and symptomatic treatment. Otherwise at this time I recommend a short course of steroids. The patient is not truly allergic to steroids. Otherwise, continue to monitor. Discussed with the patient and family, who understands. Further recommendations to follow. MTDD
[2016-08-16] MEDS: FORMOTEROL FUMARATE 20 MCG/2 ML NEBU INHALATION SCH ×2 (09:03→19:46)
[2016-08-16] MEDS: IPRATROPIUM-ALBUTEROL 3 ML NEB INHALATION SCH ×4 (09:03→19:46)
[2016-08-16] MEDS: MENTHOL (NICE) LOZENGE MUCOUS MEM PRN (10:06)
[2016-08-16 11:39] LABS: Glucose,Whole Blood 216 mg/dL (75-99)
[2016-08-16] MEDS: guaiFENesin SYRUP 100MG/5ML 200 MG/10 ML CUP PO PRN ×2 (16:12→23:43)
--- NOTE | 2016-08-16 16:54 | P.PN ---
Subjective Patient is doing better. She is less short of breath No chest discomfort No dizziness or palpitations On examination she is afebrile, RATE in the 70s, blood pressure 128/72 mmHg Heart sounds soft irregular Breath sounds are reduced bilaterally no rhonchi Abdomen is soft Skin lesions noted Impression CHF, systolic acute and chronic tracheal bronchitis Persistent atrial fibrillation Psoriasis Pacemaker implantation Suggest Continue Lasix and will consider JANE inhibitor as or angiotensin receptor blockers next week Objective - Vital Signs Vital signs: Vital Signs Temp 96.8 F L 08/16/16 16:00 Pulse 76 08/16/16 16:15 Resp 16 08/16/16 16:00 BP 147/67 08/16/16 16:00 Pulse Ox 96 08/16/16 16:00 Intake & Output 08/15/16 08/16/16 08/16/16 18:59 06:59 18:59 Intake Total 880 1060 Output Total 350 1000 300 Balance 530 -1000 760 Weight 117.8 kg Intake: Oral 880 1060 Output: Urine 350 1000 300 Stool 0 0 Other: # Voids 5 - Labs CBC & Chem 7: 08/16/16 06:10 08/16/16 06:10 Labs: Abnormal Lab Results - Last 24 Hours (Table) 08/15/16 08/16/16 08/16/16 Range/Units 20:52 05:58 06:10 Hgb 10.7 L (11.4-16.0) gm/dL MCHC 30.2 L (31.0-37.0) g/dL Neutrophils # 9.1 H (1.3-7.7) k/uL Lymphocytes # 0.5 L (1.0-4.8) k/uL Chloride (98-107) mmol/L Carbon Dioxide (22-30) mmol/L BUN (7-17) mg/dL Creatinine (0.52-1.04) mg/dL Glucose (74-99) mg/dL POC Glucose (mg/dL) 127 H 158 H (75-99) mg/dL 08/16/16 08/16/16 Range/Units 06:10 11:35 Hgb (11.4-16.0) gm/dL MCHC (31.0-37.0) g/dL Neutrophils # (1.3-7.7) k/uL Lymphocytes # (1.0-4.8) k/uL Chloride 91 L (98-107) mmol/L Carbon Dioxide 38 H (22-30) mmol/L BUN 48 H (7-17) mg/dL Creatinine 1.34 H (0.52-1.04) mg/dL Glucose 160 H (74-99) mg/dL POC Glucose (mg/dL) 216 H (75-99) mg/dL
[2016-08-16 16:58] LABS: Glucose,Whole Blood 194 mg/dL (75-99)
[2016-08-16 21:17] LABS: Glucose,Whole Blood 200 mg/dL (75-99)
--- NOTE | 2016-08-16 23:08 | PN ---
DATE OF SERVICE: 08/16/2016 This 71-year-old woman who was admitted with shortness of breath with possible multifactorial congestive heart failure and chronic obstructive pulmonary disease acute exacerbation, improving significantly. No chest pain or palpitations. No fever. On exam, alert and oriented x3. Pulse 72, blood pressure 147/67, respirations 14, temperature 97.8, pulse ox 96% on room air. HEENT: Conjunctivae normal. NECK: No JVD. CARDIOVASCULAR: S1 and S2 muffled. LUNGS: Breath sounds are diminished in the bases. Few scattered rhonchi and crackles. ABDOMEN: Soft, nontender. EXTREMITIES: Legs, no edema. NERVOUS SYSTEM: No focal deficits. LABS: WBC 9.9, sodium 140, potassium 5, creatinine is 1.34. ASSESSMENT: 1. Shortness of breath, possible multifactorial. 2. Congestive heart failure, acute exacerbation, with acute on chronic systolic dysfunction, ejection fraction 40% to 45% with chronic obstructive pulmonary disease acute exacerbation with acute purulent tracheobronchitis. 3. Acute psoriasis. 4. Increased WBC. 5. Super morbid obesity with body mass index of 47.1. 6. Increased creatinine with possible mild acute renal failure, possible prerenal, with acute tubular necrosis. 7. Atrial fibrillation. 8. History of asthma. 9. History of chronic obstructive pulmonary disease. 10. History of gastroesophageal reflux disease. 11. History of hypertension. 12. History of chronic kidney disease stage III. 13. History of sleep apnea. 14. History of chronic hypoxic respiratory failure, on home oxygen 2 liters. 15. Chronic bilateral leg edema. 16. Pacemaker. 17. Remote history of nicotine dependence. 18. FULL CODE. RECOMMENDATIONS AND DISCUSSION: Continue current medications, continue with short course of steroids, continue with current medications. Monitor fluids and electrolytes closely. Further recommendations to follow.
[2016-08-17] MEDS: methylPREDNISolone SOD SUCCI 40 MG/ML 1 ML VIAL IV SCH ×2 (06:33→12:17)
[2016-08-17] MEDS: LEVOTHYROXINE 75 MCG TAB PO SCH (06:33)
[2016-08-17] MEDS: INSULIN LISPRO (humaLOG) 300 UNIT/3 ML VIAL SQ SCH ×2 (06:33→12:17)
[2016-08-17] MEDS: PANTOPRAZOLE 40 MG TABLET PO SCH (06:34)
[2016-08-17 06:48] LABS: Basophils % (A) 0 %; CH 26.4; Eosinophils # (A) 0.1 k/uL (0-0.7); Eosinophils % (A) 0 %; HCT 37.3 % (34.0-46.0); HDW 2.99; HGB 11.2 gm/dL (11.4-16.0); Hypochromasia Marked; Luc # (Auto) 0.12; Luc % (Auto) 1; Lymphocytes # (A) 0.7 k/uL (1.0-4.8); Lymphocytes % (A) 4 %; MCH 26.4 pg (25.0-35.0); MCHC 29.9 g/dL (31.0-37.0); MCV 88.2 fL (80.0-100.0); Mean Platelet Volume 8.9; Monocytes # (A) 0.3 k/uL (0-1.0); Monocytes % (A) 2 %; Neutrophils # (A) 14.2 k/uL (1.3-7.7); Neutrophils % (A) 93 %; RBC 4.23 m/uL (3.80-5.40); RDW 15.2 % (11.5-15.5); WBC 15.4 k/uL (3.8-10.6); WBC (Perox) 16.45
[2016-08-17 06:59] LABS: Glucose,Whole Blood 141 mg/dL (75-99)
[2016-08-17 07:02] LABS: Calcium 9.2 mg/dL (8.4-10.2)
[2016-08-17] MEDS: FORMOTEROL FUMARATE 20 MCG/2 ML NEBU INHALATION SCH (08:37)
[2016-08-17] MEDS: IPRATROPIUM-ALBUTEROL 3 ML NEB INHALATION SCH ×3 (08:37→17:03)
[2016-08-17] MEDS: ALLOPURINOL 300 MG TAB PO SCH (09:16)
[2016-08-17] MEDS: METOPROLOL SUCCINATE (ER) 50 MG TAB.ER.24H PO SCH (09:16)
[2016-08-17] MEDS: DIGOXIN 125 MCG TAB PO SCH (09:17)
[2016-08-17] MEDS: APIXABAN 2.5 MG TABLET PO SCH (09:17)
[2016-08-17] MEDS: FUROSEMIDE 10 MG/ML 4 ML VIAL IV SCH (09:17)
[2016-08-17] MEDS: HYDROCORTISONE 1% CREAM 30 GM TUBE TOPICAL SCH ×3 (09:22→16:07)
[2016-08-17] MEDS: CLOTRIMAZOLE/BETAMETH 1-0.05% CREAM 45 GM TUBE TOPICAL SCH (09:22)
[2016-08-17] MEDS: NYSTATIN 100,000 UNIT/GM OINT 30 GM TUBE TOPICAL SCH (09:23)
[2016-08-17] MEDS: TRIAMCINOLONE 0.1% CREAM 80 GM TUBE TOPICAL SCH (09:23)
[2016-08-17] MEDS: guaiFENesin SYRUP 100MG/5ML 200 MG/10 ML CUP PO PRN (09:25)
[2016-08-17 09:40] VITALS: TEMP 97.6
[2016-08-17 11:53] LABS: Glucose,Whole Blood 216 mg/dL (75-99)
[2016-08-17] MEDS: HYDROcodone/APAP 5-325MG 1 EACH TAB PO PRN (12:16)
--- NOTE | 2016-08-17 12:16 | P.PN ---
Subjective Principal diagnosis: Bronchitis/CHF This is a 71-year-old female with known history of chronic persistent atrial fibrillation, COPD, asthma, GERD, hypertension, renal disease, sleep apnea, prior pacemaker implantation, psoriasis, who is from the [place] area, has lived in [place] for several years and recently moved back to this area. She states that she has seen a editor & co founder locally, however there is no records for her in the office. Patient was admitted to the hospital with symptoms of 3-4 day duration of progressively worsening shortness of breath. Patient also states she's been coughing a significant amount, clear to yellow sputum. Denies fever or chills. She does have evidence of bilateral peripheral edema, greater in the left lower extremity, she states that this is normal for her, maybe a little bit more than usual. She has significant amount of psoriasis lesions on her entire body. Chest x-ray on admission reveals mild pulmonary vascular congestion and chronic lung changes with no evidence. EKG on arrival here showed atrial fibrillation with a controlled ventricular response, inferior ST-T wave changes.She is on Eliquis for anticoagulation, on IV Lasix. Objective - Vital Signs Vital signs: Vital Signs Temp 97.6 F 08/17/16 08:00 Pulse 84 08/17/16 08:55 Resp 19 08/17/16 08:00 BP 128/62 08/17/16 08:00 Pulse Ox 93 L 08/17/16 08:00 Intake & Output 08/16/16 08/17/16 08/17/16 18:59 06:59 18:59 Intake Total 1360 360 Output Total 300 1150 Balance 1060 -1150 360 Weight 118.3 kg Intake: Oral 1360 360 Output: Urine 300 1150 Stool 0 Other: # Voids 1 # Bowel Movements 1 - Exam PHYSICAL EXAMINATION: HEENT: Head is atraumatic, normocephalic. Pupils equal, round. Neck is supple. There is no elevated jugular venous pressure. HEART EXAMINATION: Heart S1 and S2 irregular irregular systolic murmur is heard. CHEST EXAMINATION: His reveal coarse wheezing with diminished air entry bilateral bases. ABDOMEN: Soft, obese, nontender. Bowel sounds are heard. No organomegaly noted. EXTREMITIES:[ 1+ peripheral pulses with trace peripheral edema to the right lower extremity, 1+ edema to the left lower extremity. SKIN: Evidence of psoriasis lesions on the entire body. NEUROLOGIC patient is awake, alert and oriented -3. . - Labs CBC & Chem 7: 08/17/16 06:15 08/17/16 06:15 Labs: Abnormal Lab Results - Last 24 Hours (Table) 08/16/16 08/16/16 08/17/16 Range/Units 16:57 20:54 06:15 WBC 15.4 H (3.8-10.6) k/uL Hgb 11.2 L (11.4-16.0) gm/dL MCHC 29.9 L (31.0-37.0) g/dL Neutrophils # 14.2 H (1.3-7.7) k/uL Lymphocytes # 0.7 L (1.0-4.8) k/uL Chloride (98-107) mmol/L Carbon Dioxide (22-30) mmol/L BUN (7-17) mg/dL Creatinine (0.52-1.04) mg/dL Glucose (74-99) mg/dL POC Glucose (mg/dL) 194 H 200 H (75-99) mg/dL 08/17/16 08/17/16 08/17/16 Range/Units 06:15 06:24 11:42 WBC (3.8-10.6) k/uL Hgb (11.4-16.0) gm/dL MCHC (31.0-37.0) g/dL Neutrophils # (1.3-7.7) k/uL Lymphocytes # (1.0-4.8) k/uL Chloride 91 L (98-107) mmol/L Carbon Dioxide 38 H (22-30) mmol/L BUN 55 H (7-17) mg/dL Creatinine 1.42 H (0.52-1.04) mg/dL Glucose 145 H (74-99) mg/dL POC Glucose (mg/dL) 141 H 216 H (75-99) mg/dL Assessment and Plan Plan: Assessment and plan #1 congestive cardiac failure, systolic acute on chronic. #2 tracheobronchitis #3 chronic persistent atrial fibrillation, on Eliquis #4 asthma and COPD #5 history of sleep apnea #6 history of prior pacemaker implantation #7 psoriasis #8 hypertension #9 mild dementia Plan Cardiology standpoint, we'll discontinue the IV Lasix, start the patient on Lasix 40 mg one tablet by mouth twice a day. DNP note has been reviewed, I agree with a documented findings and plan of care. Patient was seen and examined.
[2016-08-17] MEDS ORDERED: FUROSEMIDE 40 MG TAB PO SCH (16:00)
[2016-08-17 16:16] VITALS: RESP 19
[2016-08-17 16:34] VITALS: BP 140/65; PULSE 72
--- NOTE | 2016-08-18 11:58 | DS ---
DATE OF ADMISSION: 08/13/2016 DATE OF DISCHARGE: 08/17/2016 FINAL DIAGNOSES: 1. Shortness of breath, possibly multifactorial with congestive heart failure acute exacerbation with acute on chronic systolic dysfunction, ejection fraction 40% to 45% with chronic obstructive pulmonary disease acute exacerbation with acute purulent tracheobronchitis. 2. Acute psoriasis. 3. Increased WBC. 4. Super morbid obesity with body mass index of 47.1. 5. Increased creatinine with possibly mild acute renal failure, possibly prerenal, with acute tubular necrosis. 6. Atrial fibrillation. 7. History of asthma. 8. History of chronic obstructive pulmonary disease. 9. Gastroesophageal reflux disease. 10. Hypertension. 11. Chronic kidney disease stage III. 12. History of sleep apnea. 13. History of chronic hypoxic respiratory failure on home 02 at 2 L. 14. Chronic bilateral leg edema. 15. Pacemaker. 16. Remote history of nicotine dependence. 17. FULL CODE. DISCHARGE DISPOSITION: Patient will be discharged in a stable condition with guarded prognosis. Total time taken 35 minutes. Discharge cleared by Cardiology. HISTORY OF PRESENT ILLNESS: This 71-year-old woman with a past medical history of multiple medical problems admitted with shortness of breath which is possibly multifactorial. Treated with diuretics and as well as bronchodilators and empiric antibiotics. Patient improved significantly. A short course of IV steroids were also used. On exam, vitals are stable. CARDIOVASCULAR SYSTEM: S1, S2, muffled. ABDOMEN: Soft. NERVOUS SYSTEM: No focal deficits. The patient will be discharged in stable condition. 1. Diet is cardiac. 2. Activity limited until followup. 3. Follow up with Dr. Lilia Love in 1 to 2 days. 4. Follow with Cardiology as recommended. 5. CBC, BMP in the outpatient setting. Medications: 1. Albuterol 2.5 q.i.d. and p.r.n. 2. Zyloprim 300 mg p.o. daily. 3. Eliquis 2.5 mg p.o. b.i.d. 4. Aspirin 325 mg daily. 5. Calcipotriene 60 gm ointment as before. 6. Clotrimazole ointment as before. 7. Desonide 15 gm topical as before. 8. Lanoxin 125 mcg p.o. daily. 9. Lasix 40 mg p.o. b.i.d. dose to be adjusted in the outpatient setting. 10. Hydrocortisone cream local application. 11. Atrovent updrafts q.i.d. and p.r.n. 12. Nizoral 2% topically as before. 13. Levaquin 500 mg daily for 5 days. 14. Levoxyl 150 mcg p.o. daily. 15. Toprol-XL 50 mg p.o. daily. 16. Nitrostat 0.4 sublingual p.r.n. 17. Nystatin one application daily p.r.n. 18. Omeprazole 40 mg p.o. daily. 19. Kenalog 1 application topically. 20. Guaifenesin 200 mg p.o. q.6 p.r.n.
== END 2016-08-17 17:15 | disposition home health service (06) | DRG 291 ==
LOC: SUPCPDRO 03:48 → EC 03:48 → 6SEL 07:50
PROVIDERS: ADMIT Hospitalist; ATTEND Hospitalist
DX: I13.0 Hypertensive heart and chronic kidney disease with heart failure and stage 1 through stage 4 chronic kidney disease, or unspecified chronic kidney disease (principal); I50.23 Acute on chronic systolic (congestive) heart failure; N17.0 Acute kidney failure with tubular necrosis; J44.0 Chronic obstructive pulmonary disease with (acute) lower respiratory infection; J96.11 Chronic respiratory failure with hypoxia; I48.1 Persistent atrial fibrillation; J44.1 Chronic obstructive pulmonary disease with (acute) exacerbation; J20.9 Acute bronchitis, unspecified; I48.2 Chronic atrial fibrillation; J45.909 Unspecified asthma, uncomplicated; L40.9 Psoriasis, unspecified; N18.3 Chronic kidney disease, stage 3 (moderate); G47.33 Obstructive sleep apnea (adult) (pediatric); F40.240 Claustrophobia; M10.9 Gout, unspecified; I45.10 Unspecified right bundle-branch block; F03.90 Unspecified dementia, unspecified severity, without behavioral disturbance, psychotic disturbance, mood disturbance, and anxiety; K21.9 Gastro-esophageal reflux disease without esophagitis; E89.0 Postprocedural hypothyroidism; D72.829 Elevated white blood cell count, unspecified; Z82.3 Family history of stroke; Z99.81 Dependence on supplemental oxygen; Z87.891 Personal history of nicotine dependence; Z82.5 Family history of asthma and other chronic lower respiratory diseases; Z79.82 Long term (current) use of aspirin; Z95.0 Presence of cardiac pacemaker; Z79.01 Long term (current) use of anticoagulants; Z79.899 Other long term (current) drug therapy; Z88.6 Allergy status to analgesic agent; Z91.012 Allergy to eggs; Z91.011 Allergy to milk products; Z91.018 Allergy to other foods; Z88.0 Allergy status to penicillin; Z91.013 Allergy to seafood; Z88.8 Allergy status to other drugs, medicaments and biological substances
CPT/HCPCS: 36415; 71010; 80048; 80053; 81001; 82550; 82553; 83880; 84132; 84484; 85025; 85379; 85610; 85730; 93005; 93306; 94640; 94660; 94760; 99285

== ENCOUNTER → 2017-06-15 | Outpatient (CLI) | payer MEDICARE ==
--- NOTE | 2017-06-15 21:04 | CONS ---
CONSULTATION REASON FOR CONSULTATION: Sleep apnea. HISTORY OF PRESENT ILLNESS: This 72-year-old female patient, who is coming to establish herself at our sleep clinic regarding obstructive sleep apnea. 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 In terms of obstructive sleep apnea, the patient was diagnosed having BRANDEN many years back through a Sleep Center in [place]. The patient was given a diagnosis of severe BRANDEN and the patient was given BiPAP at a pressure of 12/8 cm of water and she has oxygen 2 L/minute feeding into her BiPAP machine overnight. Her last sleep evaluation was done approximately 6 months ago and she had seen a sleep specialist in [facility]. She was given a new BiPAP machine which according to her has been quite functional and the patient has been responding to treatment and she has done a compliancy follow up with her sleep doctor and she was told that the treatment has been successful. The patient herself does not have any complaints from her BiPAP machine. She is utilizing every night. She is wearing it without any major difficulties. No snoring while on the BiPAP. No choking or gasping for air. She is waking up refreshed during the day. She goes to bed around 9 p.m., wakes up at 5:30 am in the morning without having to fall asleep or take naps during the day. [place] score is at 5 at this point. She is morbidly obese and she has multiple other comorbidities most significant of which is chronic hypoxic respiratory failure secondary to COPD and she is morbidly obese. She has history of severe hypertension, hypothyroidism and atrial fibrillation. She also is being followed up at the [facility] for chronic psoriasis. PAST MEDICAL HISTORY: 1. COPD. 2. Chronic hypoxic respiratory failure. 3. Bronchial asthma. 4. BRANDEN. 5. Obesity. 6. Hypothyroidism. 7. Hypertension. 8. Cerebrovascular accident. 9. Atrial fibrillation. 10.Psoriasis. PAST SURGICAL HISTORY: Includes cystoscopy, insertion of a pacemaker. DRUG ALLERGIES: PENICILLIN, LIPITOR, IODINE AND DAIRY PRODUCTS. MEDICATIONS: Her outpatient medication list includes: Albuterol and Atrovent nebulized treatments q.i.d. p.r.n. digoxin 125 mcg p.o. daily, Eliquis 2.5 mg p.o. once a day, metoprolol 50 mg p.o. daily levothyroxine 150 mg p.o. daily, nitroglycerin 0.4 mg on a p.r.n. basis. Allopurinol 300 mg p.o. daily. SOCIAL HISTORY: The patient is an ex-smoker. She has more than 40 pack-year smoking history. No history of alcohol. No IV drugs. FAMILY HISTORY: Negative for sleep apnea. REVIEW OF SYSTEMS: 12-point review of system was done. No significant fatigue or sleepiness during the day. No snoring while on the BiPAP treatment. She denies quitting breathing while on the BiPAP treatment. No history of insomnia. No choking or gasping sensation. No grinding of the teeth. No sleepwalking. No dry mouth. No anxiety or panic attacks. No palpitation. No heartburn. No chest pain overnight. No irritability. No difficulty with memory and concentration. PHYSICAL EXAMINATION: Her BP is 164/83, pulse 72, respirations 16, temperature 97.8 saturation 99% on 2 L of oxygen by nasal cannula. Weight is 250, height is 6' 2" and BMI 45.5. [place] score is 5. General appearance calm, comfortable. Head is atraumatic, normocephalic. NECK: Supple. There is no JVD. No goiter or neck masses. Mallampati class IV. LUNGS: Clear to auscultation. HEART: Sounds regular rate and rhythm. Normal S1, S2. No S3, S4. No murmurs. ABDOMEN: Obese, soft, nontender. No organomegaly. Extremities: Chronic venous stasis and chronic edema lower extremities bilaterally. Skin is negative for any open wounds or sores or cellulitis. There is evidence of chronic venous stasis lower extremities. Neuro is alert and oriented x3. There is no focal neurological deficits. Psych is negative for anxiety or depression. IMPRESSION: 1. Symptomatic obstructive sleep apnea. Currently successfully being treated with a BiPAP pressure of 11/7 cm of water. The patient was given a new BiPAP machine approximately 6 months ago through a sleep specialist in [facility] and apparently compliancy followup was also done. The patient is coming in to establish herself at our sleep clinic. Unfortunately she does not have her machine nor equipment or supplies today with her. She is using a full-face mask knowing that she is a mouth breather. 2. Obesity. The patient has lost considerable amount of weight in the order of 120 pounds. She used to weigh around 354 pounds at one point and currently she is down to 250 with a BMI of 45.5. 3. Chronic obstructive pulmonary disease. 4. Chronic hypoxic respiratory failure secondary to chronic obstructive pulmonary disease. 5. Chronic atrial fibrillation. Rate is well controlled and the patient is on long- term anticoagulation. 6. History of Ruiz's palsy. 7. History of thyroidectomy currently on thyroid hormone replacement. 8. History of cerebrovascular accident back in 2004. 9. Degenerative arthritis involving the knees and ankles. 10.Bronchial asthma. 11.Previous history of tonsillectomy. 12.Hypertension. PLAN: For now, the patient's treatment seems to be successful at least on clinical grounds. I asked the patient to bring me a BiPAP machine for me to check her compliancy data and assess her compliancy. Her clinical response is adequate for now. Will need to also establish this patient with a DME locally for feature supplies. As far as her COPD, I asked the patient to come in to the Pulmonary Clinic for PE of the chest x-ray and further workup and recommendations regarding her COPD. We will continue to follow and make further recommendations based on her overall progress. MMODL / IJN: [id number] /
== END | disposition home or self-care (01) ==
LOC: SLEEP 13:20
PROVIDERS: ATTEND Internal Medicine Critical Care Medicine
DX: G47.33 Obstructive sleep apnea (adult) (pediatric) (principal); E66.9 Obesity, unspecified; Z68.42 Body mass index [BMI] 45.0-49.9, adult; J44.9 Chronic obstructive pulmonary disease, unspecified; M17.0 Bilateral primary osteoarthritis of knee; I10 Essential (primary) hypertension; J96.11 Chronic respiratory failure with hypoxia; I48.2 Chronic atrial fibrillation; M19.071 Primary osteoarthritis, right ankle and foot; M19.072 Primary osteoarthritis, left ankle and foot; Z90.89 Acquired absence of other organs; Z86.69 Personal history of other diseases of the nervous system and sense organs; Z79.890 Hormone replacement therapy; Z87.891 Personal history of nicotine dependence; Z88.0 Allergy status to penicillin; Z88.8 Allergy status to other drugs, medicaments and biological substances; Z91.048 Other nonmedicinal substance allergy status; Z91.011 Allergy to milk products; Z79.899 Other long term (current) drug therapy; Z79.01 Long term (current) use of anticoagulants